=== PATIENT | male | born 1970 | race Hispanic/Latino ===

== ENCOUNTER 2018-07-10 10:59 | Emergency (ER) | payer OTHER ==
[2018-07-10] MEDS ORDERED: IBUPROFEN 600 MG TABLET ONE (11:32)
== END 2018-07-10 12:35 | disposition home or self-care (01) ==
LOC: EDH 10:59
DX: S93.691A Other sprain of right foot, initial encounter (principal); I10 Essential (primary) hypertension; E78.5 Hyperlipidemia, unspecified; E11.9 Type 2 diabetes mellitus without complications; X50.0XXA Overexertion from strenuous movement or load, initial encounter; Y93.89 Activity, other specified; Y92.488 Other paved roadways as the place of occurrence of the external cause; Y99.8 Other external cause status
CPT/HCPCS: 73630

== ENCOUNTER 2018-11-18 11:17 | Emergency (ER) | payer OTHER, MEDICARE ==
[2018-11-18] MEDS ORDERED: ENALAPRILAT DIHYDRATE 1.25MG/ML 1ML VIAL IV ONE (12:03)
[2018-11-18 12:06] LABS: BASOPHILS % (AUTO) 0.7 % (0.0-5.0); EOSINOPHILS % (AUTO) 1.6 % (0.0-8.0); HEMATOCRIT 41.5 % (42-54); LYMPHOCYTES % (AUTO) 34.8 % (21.0-51.0); MEAN CORPUSCULAR HEMOGLOBIN 28.8 pg (27.0-33.0); MEAN CORPUSCULAR HGB CONC 34.5 g/dL (32.0-36.0); MEAN CORPUSCULAR VOLUME 83.7 fL (79-99); MONOCYTES % (AUTO) 8.4 % (3.0-13.0); NEUTROPHILS % (AUTO) 54.5 % (40.0-77.0); PLATELET COUNT (AUTO) 166 K/uL (130-400); RED BLOOD CELL COUNT(AUTO) 4.96 MIL/uL (4.50-6.20); RED CELL DISTRIBUTION WIDTH 12.8 % (11.0-15.5)
[2018-11-18 12:09] LABS: CREATININE 0.8 mg/dL (0.5-1.5); POTASSIUM 3.8 mmol/L (3.5-5.1)
[2018-11-18 12:13] LABS: ALBUMIN 3.8 g/dL (3.5-5.0); BILIRUBIN,TOTAL 0.7 mg/dL (0.2-1.0); TOTAL PROTEIN, SERUM 7.7 g/dL (6.0-8.3)
[2018-11-18 12:50] LABS: APPEARANCE,URINE Clear (CLEAR); BILIRUBIN,URINE Negative (NEGATIVE); COLOR,URINE Yellow (YELLOW); GLUCOSE, URINE (UA) >=1000 mg/dL (NEGATIVE); KETONES,URINE Trace mg/dL (NEGATIVE); LEUKOCYTE ESTERASE ,URINE Negative (NEGATIVE); NITRATE,URINE Negative (NEGATIVE); OCCULT BLOOD,URINE Negative (NEGATIVE); PH,URINE 5.5 (5.0-8.0); PROTEIN,URINE POS 2+ mg/dL (NEGATIVE)
[2018-11-18 12:56] LABS: AMPHET/METH SCREEN,URINE NEGATIVE (NEGATIVE); BACTERIA,URINE Rare /HPF (None Seen); BARBITURATE SCREEN, URINE NEGATIVE (NEGATIVE); BENZODIAZEPINES SCREEN,URINE NEGATIVE (NEGATIVE); CANNABINOID SCREEN,URINE NEGATIVE (NEGATIVE); COCAINE SCREEN,URINE NEGATIVE (NEGATIVE); OPIATE SCREEN,URINE NEGATIVE (NEGATIVE); PHENCYCLIDINE SCREEN,URINE NEGATIVE (NEGATIVE); RBC,URINE None Seen /HPF (0-1); SQUAMOUS EPITHELIAL CELL,UR Rare /HPF (0-2); WBC,URINE None Seen /HPF (0-1)
[2018-11-18] MEDS ORDERED: IOHEXOL-350 75 ML VIAL IV ONE (13:07)
== END 2018-11-18 14:05 | disposition home or self-care (01) ==
LOC: EDH 11:17
DX: I16.1 Hypertensive emergency (principal); I10 Essential (primary) hypertension; K59.00 Constipation, unspecified; E78.5 Hyperlipidemia, unspecified; E11.9 Type 2 diabetes mellitus without complications
CPT/HCPCS: 36415; 74177; 80053; 80305; 81001; 83690; 85025; 93005; 96374; 99284; J3490; Q9967

== ENCOUNTER 2019-06-02 09:50 | Emergency (ER) | payer MEDICARE, OTHER ==
[2019-06-02 10:38] LABS: BASOPHILS % (AUTO) 0.5 % (0.0-5.0); EOSINOPHILS % (AUTO) 2.3 % (0.0-8.0); HEMATOCRIT 38.2 % (42-54); LYMPHOCYTES % (AUTO) 26.7 % (21.0-51.0); MEAN CORPUSCULAR HEMOGLOBIN 28.7 pg (27.0-33.0); MEAN CORPUSCULAR HGB CONC 35.6 g/dL (32.0-36.0); MEAN CORPUSCULAR VOLUME 80.5 fL (79-99); MONOCYTES % (AUTO) 10.9 % (3.0-13.0); NEUTROPHILS % (AUTO) 59.6 % (40.0-77.0); NUCLEATED RED BLOOD CELLS 0.1 % (0.0-0.19); PLATELET COUNT (AUTO) 168 K/uL (130-400); RED BLOOD CELL COUNT(AUTO) 4.75 MIL/uL (4.50-6.20); RED CELL DISTRIBUTION WIDTH 12.5 % (11.0-15.5); WHITE BLOOD COUNT (AUTO) 5.7 K/uL (4.8-10.8)
[2019-06-02 10:52] LABS: CREATININE 0.8 mg/dL (0.5-1.5); POTASSIUM 3.7 mmol/L (3.5-5.1)
[2019-06-02 10:57] LABS: ALBUMIN 3.5 g/dL (3.5-5.0); BILIRUBIN,TOTAL 0.5 mg/dL (0.2-1.0); TOTAL PROTEIN, SERUM 7.3 g/dL (6.0-8.3)
[2019-06-02] MEDS ORDERED: ACETAMINOPHEN EXTRA STRENGTH 500 MG TABLET ONE (12:22)
[2019-06-02] MEDS ORDERED: HYDRALAZINE HCL 20 MG/ML VIAL ONE (12:41)
== END 2019-06-02 13:51 | disposition home or self-care (01) ==
LOC: EDH 09:50
DX: R55 Syncope and collapse (principal); R51 Headache; I10 Essential (primary) hypertension; R42 Dizziness and giddiness; E11.9 Type 2 diabetes mellitus without complications; E78.5 Hyperlipidemia, unspecified; Z87.891 Personal history of nicotine dependence
CPT/HCPCS: 36415; 70450; 80053; 82550; 82948; 84484; 85025; 93005; 96365; 99285; J0360

== ENCOUNTER 2019-08-09 11:24 | Emergency (ER) | payer OTHER ==
[2019-08-09] MEDS ORDERED: METOCLOPRAMIDE 10 MG/2 ML VIAL ONE (11:48)
[2019-08-09] MEDS ORDERED: SODIUM CHLORIDE 0.9% 1000ML 1,000 ML IV ONE (11:49)
[2019-08-09 12:05] LABS: BASOPHILS % (AUTO) 0.9 % (0.0-5.0); EOSINOPHILS % (AUTO) 1.3 % (0.0-8.0); HEMATOCRIT 41.8 % (42-54); MEAN CORPUSCULAR HGB CONC 35.4 g/dL (32.0-36.0); MEAN CORPUSCULAR VOLUME 79.2 fL (79-99); MONOCYTES % (AUTO) 8.1 % (3.0-13.0); NEUTROPHILS % (AUTO) 61.3 % (40.0-77.0); PLATELET COUNT (AUTO) 193 K/uL (130-400); RED BLOOD CELL COUNT(AUTO) 5.28 MIL/uL (4.50-6.20); RED CELL DISTRIBUTION WIDTH 11.9 % (11.0-15.5); WHITE BLOOD COUNT (AUTO) 5.4 K/uL (4.8-10.8)
[2019-08-09 12:16] LABS: CREATININE 0.8 mg/dL (0.5-1.5); INR 1.02 (0.85-1.15); PARTIAL THROMBOPLASTIN TIME 25.1 SEC (26.3-35.5); POTASSIUM 3.5 mmol/L (3.5-5.1); PROTHROMBIN TIME 10.7 SEC (9.6-11.6)
[2019-08-09 12:21] LABS: TOTAL PROTEIN, SERUM 7.9 g/dL (6.0-8.3)
[2019-08-09] MEDS ORDERED: IOHEXOL-350 75 ML VIAL IV ONE (13:04)
[2019-08-09 13:12] LABS: APPEARANCE,URINE Clear (CLEAR); BILIRUBIN,URINE Negative (NEGATIVE); COLOR,URINE Yellow (YELLOW); GLUCOSE, URINE (UA) >=1000 mg/dL (NEGATIVE); KETONES,URINE Trace mg/dL (NEGATIVE); LEUKOCYTE ESTERASE ,URINE Negative (NEGATIVE); NITRATE,URINE Negative (NEGATIVE); OCCULT BLOOD,URINE Negative (NEGATIVE); PROTEIN,URINE POS 2+ mg/dL (NEGATIVE)
[2019-08-09 13:19] LABS: AMPHET/METH SCREEN,URINE NEGATIVE (NEGATIVE); BARBITURATE SCREEN, URINE NEGATIVE (NEGATIVE); BENZODIAZEPINES SCREEN,URINE NEGATIVE (NEGATIVE); CANNABINOID SCREEN,URINE NEGATIVE (NEGATIVE); COCAINE SCREEN,URINE POSITIVE (NEGATIVE); OPIATE SCREEN,URINE NEGATIVE (NEGATIVE); PHENCYCLIDINE SCREEN,URINE NEGATIVE (NEGATIVE)
[2019-08-09 14:13] LABS: BACTERIA,URINE Rare /HPF (None Seen); RBC,URINE 0-1 /HPF (0-1); SQUAMOUS EPITHELIAL CELL,UR Rare /HPF (0-2); WBC,URINE 0-1 /HPF (0-1)
[2019-08-09] MEDS ORDERED: LABETALOL 20 MG/4 ML DISP.SYRIN IV ONE (14:16)
== END 2019-08-09 14:40 | disposition home or self-care (01) ==
LOC: EDH 11:24
DX: R10.12 Left upper quadrant pain (principal); R11.2 Nausea with vomiting, unspecified; G44.209 Tension-type headache, unspecified, not intractable; F14.10 Cocaine abuse, uncomplicated; E11.9 Type 2 diabetes mellitus without complications; E78.5 Hyperlipidemia, unspecified; I10 Essential (primary) hypertension
CPT/HCPCS: 36415; 71045; 74177; 80053; 80305; 81001; 82550; 83690; 84484; 85025; 85610; 85730; 87804 ×2; 93005; 96361; 96374; 96375; 99285; J2765; J7030; Q9967

== ENCOUNTER 2021-10-07 14:15 | Inpatient (IN) | payer OTHER ==
[~2021-10-07] VITALS: Ht 172.7 cm; Wt 80.4 kg
[2021-10-07 14:43] LABS: BASOPHILS % (AUTO) 0.3 % (0.0-5.0); EOSINOPHILS % (AUTO) 0.8 % (0.0-8.0); HEMATOCRIT 41.1 % (42-54); LYMPHOCYTES % (AUTO) 17.6 % (21.0-51.0); MEAN CORPUSCULAR HEMOGLOBIN 27.1 pg (27.0-33.0); MEAN CORPUSCULAR HGB CONC 33.6 g/dL (32.0-36.0); MEAN CORPUSCULAR VOLUME 80.6 fL (79-99); MONOCYTES % (AUTO) 8.6 % (3.0-13.0); NEUTROPHILS % (AUTO) 72.4 % (40.0-77.0); PLATELET COUNT (AUTO) 172 K/uL (130-400); RED CELL DISTRIBUTION WIDTH 11.9 % (11.0-15.5); WHITE BLOOD COUNT (AUTO) 7.9 K/uL (4.8-10.8)
[2021-10-07 15:10] LABS: CREATININE 0.8 mg/dL (0.5-1.5); POTASSIUM 3.6 mmol/L (3.5-5.1)
[2021-10-07 15:14] LABS: ALBUMIN 3.2 g/dL (3.5-5.0); BILIRUBIN,TOTAL 0.5 mg/dL (0.2-1.0); TOTAL PROTEIN, SERUM 7.1 g/dL (6.0-8.3)
[2021-10-07] MEDS ORDERED: NITROGLYCERIN 0.4 MG SL TAB SL PRN (15:30)
[2021-10-07] MEDS ORDERED: ASPIRIN 81MG CHEW TAB PO ONE (17:00)
[2021-10-07] MEDS ORDERED: MORPHINE 4 MG SYG IV PRN (21:00)
[2021-10-07] MEDS ORDERED: ONDANSETRON 4MG INJ IV PRN (21:00)
[2021-10-07] MEDS ORDERED: HYDROCODONE/ACETAMINOPHEN 5/325 MG TAB PO PRN (21:00)
[2021-10-07] MEDS: ATORVASTATIN 40 MG TABLET PO SCH (21:59)
[2021-10-07] MEDS: NITROGLYCERIN 1GM OINT 1 INCH/1GM TD SCH (21:59)
[2021-10-07] MEDS: METOPROLOL TARTRATE 25 MG TAB PO SCH (21:59)
[2021-10-07] MEDS: INSULIN HUMULIN R 100 UNIT/ML 3ML SQ SCH (22:04)
[2021-10-08] MEDS: NITROGLYCERIN 1GM OINT 1 INCH/1GM TD SCH ×3 (05:00→19:57)
[2021-10-08 08:01] LABS: BASOPHILS % (AUTO) 0.5 % (0.0-5.0); EOSINOPHILS % (AUTO) 1.6 % (0.0-8.0); HEMATOCRIT 39.9 % (42-54); LYMPHOCYTES % (AUTO) 27.1 % (21.0-51.0); MEAN CORPUSCULAR HEMOGLOBIN 27.7 pg (27.0-33.0); MEAN CORPUSCULAR HGB CONC 34.6 g/dL (32.0-36.0); MONOCYTES % (AUTO) 10.4 % (3.0-13.0); NEUTROPHILS % (AUTO) 60.2 % (40.0-77.0); PLATELET COUNT (AUTO) 186 K/uL (130-400); RED BLOOD CELL COUNT(AUTO) 4.99 MIL/uL (4.50-6.20); RED CELL DISTRIBUTION WIDTH 11.9 % (11.0-15.5); WHITE BLOOD COUNT (AUTO) 5.5 K/uL (4.8-10.8)
[2021-10-08 08:16] LABS: INR 1.1 (0.85-1.15); PROTHROMBIN TIME 11.9 SEC (9.6-11.6)
[2021-10-08 08:18] LABS: PARTIAL THROMBOPLASTIN TIME 27.4 SEC (26.3-35.5)
[2021-10-08 08:37] LABS: CREATININE 0.7 mg/dL (0.5-1.5); MAGNESIUM 1.8 mg/dL (1.80-2.40); PHOSPHORUS 4.4 mg/dL (2.5-4.9); POTASSIUM 3.8 mmol/L (3.5-5.1)
[2021-10-08] MEDS: FAMOTIDINE 20MG TAB PO SCH (08:42)
[2021-10-08] MEDS: INSULIN HUMULIN R 100 UNIT/ML 3ML SQ SCH ×3 (08:42→16:42)
[2021-10-08] MEDS: ASPIRIN 81 MG EC TAB PO SCH (08:42)
[2021-10-08] MEDS: METOPROLOL TARTRATE 25 MG TAB PO SCH ×2 (08:42→19:57)
[2021-10-08] MEDS: LISINOPRIL 10 MG TABLET PO SCH (08:42)
[2021-10-08] MEDS: ENOXAPARIN SODIUM 40 MG/0.4 ML SYRINGE SQ SCH (08:43)
[2021-10-08] MEDS ORDERED: CLOPIDOGREL 75MG TAB PO SCH (09:00)
[2021-10-08] MEDS ORDERED: MORPHINE 2 MG SYG IV PRN (09:30)
[2021-10-08] MEDS ORDERED: AMLODIPINE 5 MG TAB PO ONE (09:30)
[2021-10-08] MEDS: ATORVASTATIN 40 MG TABLET PO SCH (19:57)
[2021-10-09] MEDS: INSULIN HUMULIN R 100 UNIT/ML 3ML SQ SCH ×5 (01:10→21:00)
[2021-10-09] MEDS: NITROGLYCERIN 1GM OINT 1 INCH/1GM TD SCH (06:13)
[2021-10-09 07:18] LABS: BASOPHILS % (AUTO) 0.5 % (0.0-5.0); EOSINOPHILS % (AUTO) 1.8 % (0.0-8.0); HEMATOCRIT 40.9 % (42-54); LYMPHOCYTES % (AUTO) 32.3 % (21.0-51.0); MEAN CORPUSCULAR HEMOGLOBIN 26.9 pg (27.0-33.0); MEAN CORPUSCULAR VOLUME 81.5 fL (79-99); MONOCYTES % (AUTO) 8.4 % (3.0-13.0); NEUTROPHILS % (AUTO) 56.7 % (40.0-77.0); PLATELET COUNT (AUTO) 204 K/uL (130-400); RED BLOOD CELL COUNT(AUTO) 5.02 MIL/uL (4.50-6.20); WHITE BLOOD COUNT (AUTO) 6.1 K/uL (4.8-10.8)
[2021-10-09 07:34] LABS: CREATININE 0.8 mg/dL (0.5-1.5); POTASSIUM 3.6 mmol/L (3.5-5.1)
[2021-10-09] MEDS: ASPIRIN 81 MG EC TAB PO SCH (08:45)
[2021-10-09] MEDS: FAMOTIDINE 20MG TAB PO SCH (08:45)
[2021-10-09] MEDS: ENOXAPARIN SODIUM 40 MG/0.4 ML SYRINGE SQ SCH (08:45)
[2021-10-09] MEDS: LISINOPRIL 10 MG TABLET PO SCH (08:45)
[2021-10-09] MEDS: METOPROLOL TARTRATE 25 MG TAB PO SCH ×2 (08:45→22:11)
[2021-10-09] MEDS: ATORVASTATIN 40 MG TABLET PO SCH (22:10)
[2021-10-10 04:00] VITALS: BP 160/72
[2021-10-10] MEDS ORDERED: DIPHENOXYLATE HCL/ATROPINE 2.5/0.025 MG TAB PO ONE (04:00)
[2021-10-10] MEDS: LACTATED RINGERS 1000ML 1,000 ML IV SCH (06:14)
[2021-10-10] MEDS: INSULIN HUMULIN R 100 UNIT/ML 3ML SQ SCH ×4 (06:27→20:07)
[2021-10-10 06:37] LABS: BASOPHILS % (AUTO) 0.6 % (0.0-5.0); EOSINOPHILS % (AUTO) 1.9 % (0.0-8.0); LYMPHOCYTES % (AUTO) 28.5 % (21.0-51.0); MEAN CORPUSCULAR HEMOGLOBIN 27.6 pg (27.0-33.0); MEAN CORPUSCULAR HGB CONC 33.9 g/dL (32.0-36.0); MEAN CORPUSCULAR VOLUME 81.4 fL (79-99); MONOCYTES % (AUTO) 9.6 % (3.0-13.0); NEUTROPHILS % (AUTO) 59.2 % (40.0-77.0); PLATELET COUNT (AUTO) 170 K/uL (130-400); RED BLOOD CELL COUNT(AUTO) 4.67 MIL/uL (4.50-6.20); RED CELL DISTRIBUTION WIDTH 12.1 % (11.0-15.5); WHITE BLOOD COUNT (AUTO) 6.4 K/uL (4.8-10.8)
[2021-10-10 06:47] LABS: CREATININE 0.7 mg/dL (0.5-1.5); MAGNESIUM 1.7 mg/dL (1.80-2.40); POTASSIUM 3.8 mmol/L (3.5-5.1)
[2021-10-10] MEDS ORDERED: DIPHENOXYLATE HCL/ATROPINE 2.5/0.025 MG TAB PO SCH (07:00)
[2021-10-10 08:00] VITALS: BP 159/89
[2021-10-10] MEDS: METOPROLOL TARTRATE 25 MG TAB PO SCH ×2 (09:00→20:07)
[2021-10-10] MEDS: FAMOTIDINE 20MG TAB PO SCH (09:00)
[2021-10-10] MEDS: ASPIRIN 81 MG EC TAB PO SCH (09:00)
[2021-10-10] MEDS: LISINOPRIL 10 MG TABLET PO SCH (09:00)
[2021-10-10] MEDS: ENOXAPARIN SODIUM 40 MG/0.4 ML SYRINGE SQ SCH (11:46)
[2021-10-10 12:00] VITALS: BP 135/80
[2021-10-10 15:49] VITALS: BP 176/93
[2021-10-10 20:00] VITALS: BP 176/96
[2021-10-10] MEDS: ATORVASTATIN 40 MG TABLET PO SCH (20:07)
[2021-10-10] MEDS ORDERED: HYDRALAZINE 20MG/ML VIAL IV PRN (23:00)
[2021-10-10] MEDS: LABETALOL 20MG SYG IV PRN (23:35)
[2021-10-10 23:52] VITALS: BP 187/92
[2021-10-11] VITALS (26 sets, daily range): BP systolic 154–197; BP diastolic 82–101
[2021-10-11] MEDS: LACTATED RINGERS 1000ML 1,000 ML IV SCH ×2 (02:09→18:23)
[2021-10-11 05:05] LABS: BASOPHILS % (AUTO) 0.5 % (0.0-5.0); EOSINOPHILS % (AUTO) 1.8 % (0.0-8.0); HEMATOCRIT 36.8 % (42-54); LYMPHOCYTES % (AUTO) 32.5 % (21.0-51.0); MEAN CORPUSCULAR HEMOGLOBIN 27.2 pg (27.0-33.0); MEAN CORPUSCULAR HGB CONC 34.2 g/dL (32.0-36.0); MEAN CORPUSCULAR VOLUME 79.3 fL (79-99); MONOCYTES % (AUTO) 11.2 % (3.0-13.0); NEUTROPHILS % (AUTO) 53.8 % (40.0-77.0); PLATELET COUNT (AUTO) 169 K/uL (130-400); RED BLOOD CELL COUNT(AUTO) 4.64 MIL/uL (4.50-6.20); RED CELL DISTRIBUTION WIDTH 11.9 % (11.0-15.5); WHITE BLOOD COUNT (AUTO) 5.5 K/uL (4.8-10.8)
[2021-10-11 05:41] LABS: BILIRUBIN,TOTAL 0.8 mg/dL (0.2-1.0); CREATININE 0.7 mg/dL (0.5-1.5); POTASSIUM 3.7 mmol/L (3.5-5.1); TOTAL PROTEIN, SERUM 6.6 g/dL (6.0-8.3)
[2021-10-11] MEDS: INSULIN HUMULIN R 100 UNIT/ML 3ML SQ SCH ×4 (06:15→20:03)
[2021-10-11] MEDS: LABETALOL 20MG SYG IV PRN ×2 (08:18→17:23)
[2021-10-11] MEDS: FAMOTIDINE 20MG TAB PO SCH (08:28)
[2021-10-11] MEDS: METOPROLOL TARTRATE 25 MG TAB PO SCH ×2 (08:28→20:03)
[2021-10-11] MEDS: ASPIRIN 81 MG EC TAB PO SCH (08:28)
[2021-10-11] MEDS: ENOXAPARIN SODIUM 40 MG/0.4 ML SYRINGE SQ SCH (08:29)
[2021-10-11] MEDS: LISINOPRIL 10 MG TABLET PO SCH (08:29)
[2021-10-11] MEDS ORDERED: ENALAPRILAT DIHYDRATE 1.25 MG/ML 2ML VIAL IVP SCH (10:00)
[2021-10-11] MEDS ORDERED: PROPOFOL 10 MG/ML 20ML VIAL IV ONE (12:37)
[2021-10-11] MEDS ORDERED: LIDOCAINE HCL 400MG/20ML VIAL ONE (12:37)
[2021-10-11] MEDS ORDERED: CEFAZOLIN SODIUM 1 GM VIAL ONE (12:51)
[2021-10-11] MEDS: ENALAPRILAT DIHYDRATE 1.25 MG/ML 2ML VIAL IVP SCH ×2 (16:20→21:18)
[2021-10-11] MEDS ORDERED: CLONIDINE 0.1 MG/ 24 HR PATCH TD SCH (18:30)
[2021-10-11] MEDS: ATORVASTATIN 40 MG TABLET PO SCH (20:03)
[2021-10-12] VITALS (7 sets, daily range): BP systolic 131–165; BP diastolic 74–90
[2021-10-12] MEDS ORDERED: ENALAPRILAT DIHYDRATE 1.25MG/ML 1ML VIAL IV SCH (03:00)
[2021-10-12] MEDS: INSULIN HUMULIN R 100 UNIT/ML 3ML SQ SCH ×4 (06:22→21:17)
[2021-10-12] MEDS ORDERED: CLONIDINE HCL 0.1 MG TABLET PO PRN (09:00)
[2021-10-12] MEDS: FAMOTIDINE 20MG TAB PO SCH (09:14)
[2021-10-12] MEDS: ASPIRIN 81 MG EC TAB PO SCH (09:14)
[2021-10-12] MEDS: ENALAPRILAT DIHYDRATE 1.25 MG/ML 2ML VIAL IVP SCH ×3 (09:14→20:57)
[2021-10-12] MEDS: LISINOPRIL 10 MG TABLET PO SCH (09:15)
[2021-10-12] MEDS: METOPROLOL TARTRATE 25 MG TAB PO SCH ×2 (09:26→20:57)
[2021-10-12] MEDS: ENOXAPARIN SODIUM 40 MG/0.4 ML SYRINGE SQ SCH (09:27)
[2021-10-12] MEDS: ATORVASTATIN 40 MG TABLET PO SCH (20:57)
[2021-10-12] MEDS: LACTATED RINGERS 1000ML 1,000 ML IV SCH (22:02)
[2021-10-13] VITALS: BP 154/94
[2021-10-13 04:00] VITALS: BP 149/99
[2021-10-13 05:42] LABS: BASOPHILS % (AUTO) 0.4 % (0.0-5.0); HEMATOCRIT 36.8 % (42-54); LYMPHOCYTES % (AUTO) 18.3 % (21.0-51.0); MEAN CORPUSCULAR HEMOGLOBIN 27.3 pg (27.0-33.0); MEAN CORPUSCULAR HGB CONC 33.4 g/dL (32.0-36.0); MEAN CORPUSCULAR VOLUME 81.6 fL (79-99); MONOCYTES % (AUTO) 15.2 % (3.0-13.0); NEUTROPHILS % (AUTO) 64.8 % (40.0-77.0); PLATELET COUNT (AUTO) 176 K/uL (130-400); RED BLOOD CELL COUNT(AUTO) 4.51 MIL/uL (4.50-6.20); RED CELL DISTRIBUTION WIDTH 11.9 % (11.0-15.5); WHITE BLOOD COUNT (AUTO) 7.7 K/uL (4.8-10.8)
[2021-10-13 05:47] LABS: ALBUMIN 2.9 g/dL (3.5-5.0); BILIRUBIN,TOTAL 0.7 mg/dL (0.2-1.0); CREATININE 0.7 mg/dL (0.5-1.5); POTASSIUM 3.5 mmol/L (3.5-5.1); TOTAL PROTEIN, SERUM 6.7 g/dL (6.0-8.3)
[2021-10-13] MEDS: INSULIN HUMULIN R 100 UNIT/ML 3ML SQ SCH ×2 (06:08→11:59)
[2021-10-13 08:00] VITALS: BP 158/88
[2021-10-13] MEDS: ASPIRIN 81 MG EC TAB PO SCH (08:10)
[2021-10-13] MEDS: METOPROLOL TARTRATE 25 MG TAB PO SCH (08:10)
[2021-10-13] MEDS: LISINOPRIL 10 MG TABLET PO SCH (08:10)
[2021-10-13] MEDS: FAMOTIDINE 20MG TAB PO SCH (08:10)
[2021-10-13] MEDS: ENOXAPARIN SODIUM 40 MG/0.4 ML SYRINGE SQ SCH (08:16)
[2021-10-13] MEDS ORDERED: HYDRALAZINE 25MG TABLET PO SCH (09:00)
[2021-10-13] MEDS ORDERED: ATOR40TA69 PO (10:27)
[2021-10-13] MEDS ORDERED: METO25 PO (10:27)
[2021-10-13] MEDS ORDERED: PANT40TA PO (10:27)
[2021-10-13] MEDS ORDERED: LISI10TA24 PO (10:27)
[2021-10-13] MEDS ORDERED: HYDR25 PO (10:27)
[2021-10-13 12:00] VITALS: BP 152/88
== END 2021-10-13 12:50 | disposition home or self-care (01) | DRG 305 ==
LOC: EDH 14:15 → EDHIP 20:49 → OBSVTOIN 20:49 → 4AH 10-10 03:40
PROVIDERS: ADMIT Hospitalist; ATTEND Hospitalist
PROC: 0DH63UZ Insertion of Feeding Device into Stomach, Percutaneous Approach (ICD-10-PCS; principal; 2021-10-11)
DX: I16.1 Hypertensive emergency (principal); E11.65 Type 2 diabetes mellitus with hyperglycemia; E78.5 Hyperlipidemia, unspecified; I16.0 Hypertensive urgency; R13.12 Dysphagia, oropharyngeal phase; E83.42 Hypomagnesemia; R63.30 Feeding difficulties, unspecified; E78.00 Pure hypercholesterolemia, unspecified; I10 Essential (primary) hypertension; Z91.14 Patient's other noncompliance with medication regimen; Z79.899 Other long term (current) drug therapy; Z86.73 Personal history of transient ischemic attack (TIA), and cerebral infarction without residual deficits
CPT/HCPCS: 36415; 43246; 70450; 71045; 74230; 80048; 80053; 82948; 83036; 83735; 83880; 84100; 84484; 85025; 85610; 85730; 87635; 92610; 92611; 93005; 93306; 97039; 99291; G0378; J0690; J1650; J1815; J2704; J3490; J7120

== ENCOUNTER 2022-12-04 10:12 | Emergency (ER) | payer OTHER ==
[~2022-12-04] VITALS: Ht 172.7 cm; Wt 68.0 kg
[~2022-12-04 10:12] MED LIST: ATOR40TA69 PO; HYDR25 PO; LISI10TA24 PO; METO25 PO; PANT40TA PO
[2022-12-04 10:43] LABS: BASOPHILS % (AUTO) 0.4 % (0.0-5.0); HEMATOCRIT 44.9 % (42-54); LYMPHOCYTES % (AUTO) 20.8 % (21.0-51.0); MEAN CORPUSCULAR HGB CONC 34.7 g/dL (32.0-36.0); MEAN CORPUSCULAR VOLUME 80.6 fL (79-99); MONOCYTES % (AUTO) 8.9 % (3.0-13.0); NEUTROPHILS % (AUTO) 68.8 % (40.0-77.0); PLATELET COUNT (AUTO) 183 K/uL (130-400); RED BLOOD CELL COUNT(AUTO) 5.57 MIL/uL (4.50-6.20); WHITE BLOOD COUNT (AUTO) 6.9 K/uL (4.8-10.8)
[2022-12-04 10:55] LABS: CREATININE 0.9 mg/dL (0.5-1.5); POTASSIUM 3.8 mmol/L (3.5-5.1)
[2022-12-04 10:59] LABS: ALBUMIN 3.1 g/dL (3.5-5.0); TOTAL PROTEIN, SERUM 7.3 g/dL (6.0-8.3)
[2022-12-04] MEDS ORDERED: 0.9%NACL 1000ML 1,000 ML IV ONE (12:00)
[2022-12-04] MEDS ORDERED: INSULIN HUMULIN R 100 UNIT/ML 3ML IV ONE (12:00)
[2022-12-04] MEDS ORDERED: ASPIRIN 325MG EC TAB PO ONE (12:00)
[2022-12-04 12:22] LABS: AMPHET/METH SCREEN,URINE NEGATIVE (NEGATIVE); BARBITURATE SCREEN, URINE NEGATIVE (NEGATIVE); BENZODIAZEPINES SCREEN,URINE NEGATIVE (NEGATIVE); CANNABINOID SCREEN,URINE NEGATIVE (NEGATIVE); COCAINE SCREEN,URINE POSITIVE (NEGATIVE); OPIATE SCREEN,URINE NEGATIVE (NEGATIVE); PHENCYCLIDINE SCREEN,URINE NEGATIVE (NEGATIVE)
[2022-12-04 12:24] LABS: APPEARANCE,URINE CLEAR (CLEAR); BILIRUBIN,URINE NEGATIVE (NEGATIVE); COLOR,URINE LIGHT-YELLOW (YELLOW); GLUCOSE, URINE (UA) >=1000 mg/dL (NEGATIVE); KETONES,URINE NEGATIVE (NEGATIVE); LEUKOCYTE ESTERASE ,URINE NEGATIVE Leu/uL (NEGATIVE); NITRATE,URINE NEGATIVE (NEGATIVE); OCCULT BLOOD,URINE SMALL (NEGATIVE); PROTEIN,URINE 300 mg/dL (NEGATIVE); UROBILINOGEN,URINE 0.2 mg/dL (0.2-1.0)
[2022-12-04 12:33] LABS: BACTERIA,URINE RARE /HPF (None Seen); OTHER CASTS, URINE 1 /LPF (None Seen); WBC,URINE 0-1 /HPF (0-1)
[2022-12-04] MEDS ORDERED: DiphenhydrAMINE HCL 50 MG/ML VIAL IV ONE (13:00)
[2022-12-04] MEDS ORDERED: HYDRALAZINE 20MG/ML VIAL IV ONE (13:00)
[2022-12-04] MEDS ORDERED: PROCHLORPERAZINE EDISYLATE 5 MG/ML 2 ML VIAL IVP ONE (13:00)
[2022-12-04 15:30] VITALS: BP 160/98
== END 2022-12-04 15:44 | disposition home or self-care (01) ==
LOC: EDH 10:12
DX: R51.9 Headache, unspecified (principal); H53.2 Diplopia; I10 Essential (primary) hypertension; E11.9 Type 2 diabetes mellitus without complications; Z79.899 Other long term (current) drug therapy
CPT/HCPCS: 99285; 70551; 96374; 70450; 96361; 96375; 84484; 80053; 80305; 85025; 82948; 36415; 93005; 70544; 81001; J1815; J0360

== ENCOUNTER 2024-03-26 12:54 | Emergency (ER) | payer MEDICARE, OTHER ==
[~2024-03-26] VITALS: Ht 172.7 cm; Wt 81.6 kg
[2024-03-26 13:49] LABS: BASOPHILS # (AUTO) 0.04 K/uL (0.00-0.20); BASOPHILS % (AUTO) 0.6 % (0.0-5.0); EOSINOPHILS # (AUTO) 0.11 K/uL (0.00-0.70); EOSINOPHILS % (AUTO) 1.6 % (0.0-8.0); HEMATOCRIT 38.3 % (42-54); IMMATURE GRANULOCYTE ABSOLUTE 0.02 K/uL (0-1); LYMPHOCYTES # (AUTO) 1.5 K/uL (1.0-4.8); LYMPHOCYTES % (AUTO) 21.1 % (21.0-51.0); MEAN CORPUSCULAR HEMOGLOBIN 28.2 pg (27.0-33.0); MEAN CORPUSCULAR HGB CONC 34.7 g/dL (32.0-36.0); MEAN CORPUSCULAR VOLUME 81.1 fL (79-99); MONOCYTES # (AUTO) 0.6 K/uL (0.1-1.0); MONOCYTES % (AUTO) 8.1 % (3.0-13.0); NEUTROPHILS # (AUTO) 4.8 K/uL (1.8-7.7); NEUTROPHILS % (AUTO) 68.3 % (40.0-77.0); PLATELET COUNT (AUTO) 245 K/uL (130-400); RED BLOOD CELL COUNT(AUTO) 4.72 MIL/uL (4.50-6.20); WHITE BLOOD COUNT (AUTO) 7.1 K/uL (4.8-10.8)
[2024-03-26 13:56] LABS: CREATININE 1.2 mg/dL (0.5-1.3)
[2024-03-26] MEDS ORDERED: SULF1TAB42 PO (17:18)
[2024-03-26] MEDS ORDERED: KETO10TA2 PO (17:18)
[2024-03-26] MEDS: CEFTRIAXONE 1G VIAL IM ONE (17:29)
[2024-03-26 17:38] VITALS: BP 146/84; PULSE 82; RESP 16; O2SAT 95
== END 2024-03-26 17:40 | disposition home or self-care (01) ==
LOC: EDH 12:54
DX: L03.115 Cellulitis of right lower limb (principal); E11.9 Type 2 diabetes mellitus without complications; E78.00 Pure hypercholesterolemia, unspecified; I10 Essential (primary) hypertension; M79.662 Pain in left lower leg; M79.661 Pain in right lower leg; Z79.899 Other long term (current) drug therapy
CPT/HCPCS: 99285; 93970; 80048; 85025; 83605; 36415; 96372; 84145; J0696